=== PATIENT | female | born 1965 | race Caucasian/White ===

== ENCOUNTER 2017-08-17 10:00 | Emergency (ER) | payer MEDICAID ==
[~2017-08-17] VITALS: Ht 152.4 cm; Wt 56.7 kg
[2017-08-17 10:12] VITALS: BP 139/97; Ht 152.4 cm; Wt 56.7 kg
== END 2017-08-17 12:18 | disposition home or self-care (01) ==
LOC: ED 10:00
DX: R05 Cough (principal)

== ENCOUNTER 2017-08-18 22:08 | Emergency (ER) | payer MEDICAID ==
[~2017-08-18] VITALS: Ht 152.4 cm; Wt 60.8 kg
[2017-08-18 23:20] VITALS: BP 132/57; Ht 152.4 cm; Wt 60.8 kg
== END 2017-08-19 04:36 | disposition left against medical advice (07) ==
LOC: ED 22:08
DX: Z53.21 Procedure and treatment not carried out due to patient leaving prior to being seen by health care provider (principal)

== ENCOUNTER 2017-10-20 09:27 | Emergency (ER) | payer MEDICAID ==
[~2017-10-20] VITALS: Ht 152.4 cm; Wt 55.8 kg
[2017-10-20 09:38] VITALS: Ht 152.4 cm; Wt 55.8 kg
[2017-10-20 10:37] LABS: CALCIUM 8.8 mg/dL (8.5-10.1); CARBON DIOXIDE 28.3 mmol/L (21-32); CHLORIDE SERUM 95 mmol/L (98-107); CREATININE SERUM 0.6 mg/dL (0.6-1.0); GFR1 > 60 mL/min; GLUCOSE SERUM 161 mg/dL (74-106); POTASSIUM SERUM 3.1 mmol/L (3.5-5.1); SODIUM SERUM 136 mmol/L (136-145)
[2017-10-20 10:38] LABS: PLATELET COUNT 310 x10^3mcL (130-400); RED CELL DISTRIBUTION WIDTH 12.8 % (11.5-14.5)
[2017-10-20 10:42] LABS: ALKALINE PHOSPHATASE 200 U/L (46-116); ALT/SGPT 38 U/L (14-59); AST/SGOT 31 U/L (15-37); BILIRUBIN TOTAL 0.4 mg/dL (0.20-1.00)
[2017-10-20 10:47] LABS: TOTAL PROTEIN, SERUM 8.8 g/dL (6.4-8.2)
[2017-10-20 12:29] VITALS: BP 141/82
== END 2017-10-20 13:08 | disposition home or self-care (01) ==
LOC: ED 09:27
PROVIDERS: Specialist
DX: J20.9 Acute bronchitis, unspecified (principal); J11.1 Influenza due to unidentified influenza virus with other respiratory manifestations; I10 Essential (primary) hypertension; E11.9 Type 2 diabetes mellitus without complications; E89.0 Postprocedural hypothyroidism
CPT/HCPCS: 87804; J0696; J3490; J7030; Q0092

== ENCOUNTER 2017-10-21 21:55 | Emergency (ER) | payer MEDICAID ==
[~2017-10-21] VITALS: Ht 152.4 cm; Wt 55.8 kg
[2017-10-21 23:14] VITALS: BP 130/67
== END 2017-10-21 23:14 | disposition home or self-care (01) ==
LOC: ED 21:55
DX: J10.1 Influenza due to other identified influenza virus with other respiratory manifestations (principal); I10 Essential (primary) hypertension; E11.9 Type 2 diabetes mellitus without complications; E89.0 Postprocedural hypothyroidism
CPT/HCPCS: 87804; J7613; J7644

== ENCOUNTER 2018-06-28 16:24 | Emergency (ER) | payer MEDICAID ==
[~2018-06-28] VITALS: Ht 152.4 cm; Wt 54.4 kg
[2018-06-28 16:29] VITALS: Ht 152.4 cm; Wt 54.4 kg
[2018-06-28 17:45] VITALS: BP 142/87
== END 2018-06-28 17:45 | disposition home or self-care (01) ==
LOC: ED 16:24
DX: L03.011 Cellulitis of right finger (principal); I10 Essential (primary) hypertension; E11.9 Type 2 diabetes mellitus without complications

== ENCOUNTER 2018-08-06 14:46 | Emergency (ER) | payer MEDICAID ==
[~2018-08-06] VITALS: Ht 147.3 cm; Wt 50.8 kg
[2018-08-06 14:52] VITALS: BP 124/80; Ht 147.3 cm; Wt 50.8 kg
== END 2018-08-06 16:34 | disposition home or self-care (01) ==
LOC: ED 14:46
DX: H11.31 Conjunctival hemorrhage, right eye (principal); I10 Essential (primary) hypertension; E11.9 Type 2 diabetes mellitus without complications; Z98.890 Other specified postprocedural states

== ENCOUNTER 2019-09-13 08:06 | Emergency (ER) | payer MEDICAID ==
[~2019-09-13] VITALS: Ht 152.4 cm; Wt 56.2 kg
[2019-09-13 08:13] VITALS: BP 138/82; Ht 152.4 cm; Wt 56.2 kg
== END 2019-09-13 09:41 | disposition home or self-care (01) ==
LOC: ED 08:06
DX: J36 Peritonsillar abscess (principal); I10 Essential (primary) hypertension; E11.9 Type 2 diabetes mellitus without complications; Z98.890 Other specified postprocedural states; Z85.850 Personal history of malignant neoplasm of thyroid; Z90.89 Acquired absence of other organs
CPT/HCPCS: 82962